=== PATIENT | female | born 1960 | race Hispanic/Latino ===

== ENCOUNTER 2019-01-31 09:06 | Emergency (ER) | payer BC ==
[~2019-01-31 09:06] MED LIST: CALC-1038 PO; LEVO100 PO; VITAMIN D PO; [UNRECOGNIZED DRUG - OTHER] PO
[2019-01-31 09:41] LABS: APPEARANCE,URINE CLEAR (CLEAR); BILIRUBIN,URINE NEGATIVE (NEGATIVE); COLOR,URINE YELLOW (YELLOW); GLUCOSE, URINE (UA) NEGATIVE (NEGATIVE); KETONES,URINE NEGATIVE (NEGATIVE); LEUKOCYTE ESTERASE ,URINE NEGATIVE (NEGATIVE); NITRATE,URINE POSITIVE (NEGATIVE); OCCULT BLOOD,URINE TRACE-INTACT (NEGATIVE); PROTEIN,URINE NEGATIVE (NEGATIVE); UROBILINOGEN,URINE 0.2 mg/dL (0.2-1.0)
[2019-01-31 09:46] LABS: BASOPHILS % (AUTO) 0.7 % (0.0-5.0); EOSINOPHILS % (AUTO) 1.7 % (0.0-8.0); HEMATOCRIT 47.2 % (36-48); LYMPHOCYTES % (AUTO) 31.9 % (21.0-51.0); MEAN CORPUSCULAR HEMOGLOBIN 33.4 pg (27.0-33.0); MEAN CORPUSCULAR HGB CONC 34.1 g/dL (32.0-36.0); MONOCYTES % (AUTO) 5.6 % (3.0-13.0); NEUTROPHILS % (AUTO) 60.1 % (40.0-77.0); PLATELET COUNT (AUTO) 230 K/uL (130-400); RED BLOOD CELL COUNT(AUTO) 4.82 MIL/uL (4.00-5.50); RED CELL DISTRIBUTION WIDTH 13.5 % (11.0-15.5); WHITE BLOOD COUNT (AUTO) 6.5 K/uL (4.8-10.8)
[2019-01-31] MEDS ORDERED: MECLIZINE HCL 25 MG TABLET ONE (09:46)
[2019-01-31 09:49] LABS: AMPHET/METH SCREEN,URINE NEGATIVE (NEGATIVE); BARBITURATE SCREEN, URINE NEGATIVE (NEGATIVE); BENZODIAZEPINES SCREEN,URINE NEGATIVE (NEGATIVE); CANNABINOID SCREEN,URINE NEGATIVE (NEGATIVE); COCAINE SCREEN,URINE NEGATIVE (NEGATIVE); OPIATE SCREEN,URINE NEGATIVE (NEGATIVE); PHENCYCLIDINE SCREEN,URINE NEGATIVE (NEGATIVE)
[2019-01-31 09:53] LABS: RBC,URINE 0-1 /HPF (0-1); WBC,URINE 0-1 /HPF (0-1)
[2019-01-31 09:54] LABS: BACTERIA,URINE Many /HPF (None Seen); SQUAMOUS EPITHELIAL CELL,UR Few /HPF (0-2)
[2019-01-31 09:57] LABS: POTASSIUM 4.5 mmol/L (3.5-5.1)
[2019-01-31 09:58] LABS: INR 0.95 (0.85-1.15); PARTIAL THROMBOPLASTIN TIME 30.3 SEC (26.3-35.5)
[2019-01-31] MEDS ORDERED: ASPIRIN 325 MG TABLET ONE (09:58)
[2019-01-31] MEDS ORDERED: NITROGLYCERIN 1GM/1 INCH PACKET TD ONE (09:59)
[2019-01-31 10:10] LABS: ALBUMIN 3.7 g/dL (3.5-5.0); BILIRUBIN,TOTAL 0.5 mg/dL (0.2-1.0); THYROID STIMULATING HORMONE 1.6 uIU/mL (0.36-3.74); TOTAL PROTEIN, SERUM 7.6 g/dL (6.0-8.3)
== END 2019-01-31 11:02 | disposition home or self-care (01) ==
LOC: EDH 09:06
DX: H81.399 Other peripheral vertigo, unspecified ear (principal); I10 Essential (primary) hypertension; E07.9 Disorder of thyroid, unspecified; Z87.442 Personal history of urinary calculi
CPT/HCPCS: 36415; 71045; 80053; 80305; 81001; 82550; 84443; 84484; 85025; 85610; 85730; 93005

== ENCOUNTER 2019-05-28 18:06 | Emergency (ER) | payer BC ==
[2019-05-28] MEDS ORDERED: KETOROLAC TROMETHAMINE 15MG/ML ONE (18:32)
[2019-05-28] MEDS ORDERED: SODIUM CHLORIDE 0.9% 1000ML 1,000 ML IV ONE (18:32)
[2019-05-28 18:42] LABS: BASOPHILS % (AUTO) 0.3 % (0.0-5.0); EOSINOPHILS % (AUTO) 0.5 % (0.0-8.0); HEMATOCRIT 40.9 % (36-48); LYMPHOCYTES % (AUTO) 18.8 % (21.0-51.0); MEAN CORPUSCULAR HEMOGLOBIN 33.9 pg (27.0-33.0); MEAN CORPUSCULAR HGB CONC 35.2 g/dL (32.0-36.0); MEAN CORPUSCULAR VOLUME 96.2 fL (79-99); MONOCYTES % (AUTO) 5.9 % (3.0-13.0); NEUTROPHILS % (AUTO) 74.3 % (40.0-77.0); PLATELET COUNT (AUTO) 236 K/uL (130-400); RED BLOOD CELL COUNT(AUTO) 4.25 MIL/uL (4.00-5.50); RED CELL DISTRIBUTION WIDTH 12.8 % (11.0-15.5); WHITE BLOOD COUNT (AUTO) 11.3 K/uL (4.8-10.8)
[2019-05-28 18:52] LABS: CREATININE 1.1 mg/dL (0.5-1.5); POTASSIUM 3.3 mmol/L (3.5-5.1)
[2019-05-28 18:56] LABS: BILIRUBIN,TOTAL 0.4 mg/dL (0.2-1.0); TOTAL PROTEIN, SERUM 7.6 g/dL (6.0-8.3)
[2019-05-28 18:58] LABS: APPEARANCE,URINE Turbid (CLEAR); BILIRUBIN,URINE Negative (NEGATIVE); COLOR,URINE Yellow (YELLOW); GLUCOSE, URINE (UA) Negative (NEGATIVE); KETONES,URINE Negative (NEGATIVE); LEUKOCYTE ESTERASE ,URINE Large (NEGATIVE); NITRATE,URINE Negative (NEGATIVE); OCCULT BLOOD,URINE Large (NEGATIVE); PH,URINE 6.5 (5.0-8.0); PROTEIN,URINE 300 mg/dL (NEGATIVE); UROBILINOGEN,URINE 0.2 mg/dL (0.2-1.0)
[2019-05-28 19:27] LABS: BACTERIA,URINE Few /HPF (None Seen); SQUAMOUS EPITHELIAL CELL,UR None Seen /HPF (0-2); WBC,URINE Full Field /HPF (0-1)
[2019-05-28] MEDS ORDERED: CEFTRIAXONE SODIUM 1 GM ONE (20:38)
== END 2019-05-28 21:33 | disposition home or self-care (01) ==
LOC: EDH 18:06
DX: N39.0 Urinary tract infection, site not specified (principal); N23 Unspecified renal colic; I10 Essential (primary) hypertension; Z90.49 Acquired absence of other specified parts of digestive tract; Z98.890 Other specified postprocedural states
CPT/HCPCS: 36415; 74176; 80053; 81001; 83690; 85025; 87077; 87088; 87186; 96361; 96374; 96375; 99284; J0696; J1885; J7030

== ENCOUNTER → 2020-03-25 | Outpatient (CLI) | payer BC | END | disposition home or self-care (01) | LOC: RAH 08:07 | PROVIDERS: ATTEND Family Medicine | DX: M79.605 Pain in left leg (principal); M79.604 Pain in right leg | CPT/HCPCS: 93925; 93970 ==

== ENCOUNTER → 2020-12-19 | Outpatient (CLI) | payer BC | END | disposition home or self-care (01) | LOC: RAH 16:26 | PROVIDERS: ATTEND Internal Medicine | DX: M19.071 Primary osteoarthritis, right ankle and foot (principal); M85.871 Other specified disorders of bone density and structure, right ankle and foot | CPT/HCPCS: 73630 ==

== ENCOUNTER → 2020-12-23 | Outpatient (CLI) | payer BC | END | disposition home or self-care (01) | LOC: RAH 10:53 | PROVIDERS: ATTEND Internal Medicine | DX: M25.551 Pain in right hip (principal) | CPT/HCPCS: 73502 ==

== ENCOUNTER → 2021-12-05 | Outpatient (CLI) | payer BC | END | disposition home or self-care (01) | LOC: RAH 09:10 | PROVIDERS: ATTEND Internal Medicine | DX: M25.551 Pain in right hip (principal) | CPT/HCPCS: 73562 ==

== ENCOUNTER → 2022-05-01 | Outpatient (CLI) | payer BC | END | disposition home or self-care (01) | LOC: RAH 09:34 | PROVIDERS: ATTEND Podiatrist | DX: M76.61 Achilles tendinitis, right leg (principal); M67.01 Short Achilles tendon (acquired), right ankle; M25.774 Osteophyte, right foot | CPT/HCPCS: 73610 ==

== ENCOUNTER → 2022-10-18 | Outpatient (CLI) | payer OTHER | END | disposition home or self-care (01) | LOC: OIH 13:16 | PROVIDERS: ATTEND Internal Medicine Cardiovascular Disease | DX: Z13.6 Encounter for screening for cardiovascular disorders (principal); R93.1 Abnormal findings on diagnostic imaging of heart and coronary circulation | CPT/HCPCS: 75571 ==